=== PATIENT | male | born 1980 ===

== ENCOUNTER 2021-12-19 04:25 | Emergency (ER) | payer OTHER ==
[~2021-12-19] VITALS: Ht 172.7 cm; Wt 99.8 kg
[~2021-12-19 04:25] MED LIST: BACTROBAN OINT22 GM TP; CIPRO500 MG PO; KETO10TA2 PO; SEPTRA DS TABLE1 TAB PO
== END 2021-12-19 09:50 | disposition home or self-care (01) ==
LOC: ER 04:25
DX: B34.9 Viral infection, unspecified (principal)